=== PATIENT | female | born 2000 | race Asian ===

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

== ENCOUNTER 2020-07-30 12:33 | Emergency (ER) | payer MEDICAID ==
[~2020-07-30] VITALS: Ht 165.1 cm; Wt 77.3 kg
[2020-07-30 13:27] VITALS: BP 132/85
[2020-07-30] MEDS ORDERED: CYCL-394 PO (14:48)
== END 2020-07-30 15:00 | disposition home or self-care (01) ==
LOC: ER 12:33
DX: S49.92XA Unspecified injury of left shoulder and upper arm, initial encounter (principal); R42 Dizziness and giddiness; R53.83 Other fatigue; M25.512 Pain in left shoulder; M79.602 Pain in left arm; H93.12 Tinnitus, left ear; Z91.013 Allergy to seafood; Z91.018 Allergy to other foods; Z79.899 Other long term (current) drug therapy; V87.7XXA Person injured in collision between other specified motor vehicles (traffic), initial encounter; Y93.89 Activity, other specified; Y92.89 Other specified places as the place of occurrence of the external cause; Y99.8 Other external cause status
CPT/HCPCS: 99283

== ENCOUNTER 2020-08-10 07:37 | Emergency (ER) | payer MEDICAID ==
[~2020-08-10] VITALS: Ht 165.1 cm; Wt 78.8 kg
[~2020-08-10 07:37] MED LIST changes: +CYCL-394 PO
[2020-08-10] MEDS ORDERED: LIDOcaine Viscous 15ml cup MM ONE (08:30)
[2020-08-10] MEDS ORDERED: HYDROcodone/acetaminophen 10/325mg tab PO ONE (08:30)
[2020-08-10] MEDS ORDERED: mag hydrox/Alum hydrox/simeth 30ml oral suspension PO ONE (08:30)
[2020-08-10] MEDS ORDERED: ibuprofen 200mg tablet PO ONE (08:30)
[2020-08-10] MEDS ORDERED: dexamethasone sod phosphate 10mg/ml inj IM STA (09:26)
[2020-08-10] MEDS ORDERED: PENICILLIN G BENZATHINE 2,400,000 UNIT/4 ML SYRINGE IM ONE (09:30)
[2020-08-10] MEDS ORDERED: penicillin G benzathine 1.2 million unit/2ml syringe IM ONE (09:30)
[2020-08-10 09:57] VITALS: BP 136/78
== END 2020-08-10 09:58 | disposition home or self-care (01) ==
LOC: ER 07:37
DX: J02.0 Streptococcal pharyngitis (principal); R51.9 Headache, unspecified; J45.909 Unspecified asthma, uncomplicated; Z91.013 Allergy to seafood; Z91.018 Allergy to other foods; Z79.899 Other long term (current) drug therapy
CPT/HCPCS: 87880; 96372; 99284; J0561; J1100

== ENCOUNTER 2020-08-13 22:53 | Emergency (ER) | payer MEDICAID ==
[~2020-08-13] VITALS: Ht 167.6 cm; Wt 78.8 kg
[2020-08-13 23:24] VITALS: BP 135/89
[2020-08-14] MEDS ORDERED: diph,pertuss (acell), tet (DTaP-PEDs)/PF 0.5ml syringe IMVAC ONE (00:40)
[2020-08-14] MEDS ORDERED: HYDROcodone/acetaminophen 5mg/325mg tablet PO ONE (00:40)
[2020-08-14] MEDS ORDERED: TETanus/Pertussis (Acell)/Diphther VAC/PF (Tdap-Adult) 0.5ml syringe IMVAC ONE (00:45)
[2020-08-14] MEDS ORDERED: LIDOcaine 1% W/epiNEPHrine 1:100,000 20ml vial SQ ONE (02:55)
--- NOTE | 2020-08-14 04:28 | NUR ---
PT SIGNED MEDICAL RECORDS RELEASE AND PROVIDED XRAY READ AND MEDS GIVEN. PT FILLED OUT THE ANIMALL BITE FORM AND IT WAS FAXED TO [facility]
== END 2020-08-14 04:32 | disposition home or self-care (01) ==
LOC: ER 22:54
DX: S71.111A Laceration without foreign body, right thigh, initial encounter (principal); M79.651 Pain in right thigh; J45.909 Unspecified asthma, uncomplicated; Z91.013 Allergy to seafood; Z91.018 Allergy to other foods; Z79.899 Other long term (current) drug therapy; W54.0XXA Bitten by dog, initial encounter; Y93.89 Activity, other specified; Y92.89 Other specified places as the place of occurrence of the external cause; Y99.8 Other external cause status
CPT/HCPCS: 12001; 73551; 90471; 90715; 96372; 99283

== ENCOUNTER 2020-08-21 19:12 | Emergency (ER) | payer MEDICAID ==
[~2020-08-21] VITALS: Ht 165.1 cm; Wt 78.0 kg
[2020-08-21 19:55] VITALS: BP 140/101
[2020-08-21] MEDS ORDERED: rabies immune globulin/PF 150 unit/ml inj IMVAC STA (22:37)
[2020-08-21] MEDS ORDERED: rabies immune globulin/PF 150 unit/ml inj IMVAC ONE (22:45)
--- NOTE | 2020-08-21 23:59 | NUR ---
SANDRO Carroll notified wound was from couple days. Per Charge Nurse Ventura and SANDRO, adm. IM multiple sites at this time the vaccine.
== END 2020-08-22 00:03 | disposition home or self-care (01) ==
LOC: ER 19:13
DX: S70.11XA Contusion of right thigh, initial encounter (principal); Z20.3 Contact with and (suspected) exposure to rabies; J45.909 Unspecified asthma, uncomplicated; Z91.013 Allergy to seafood; Z91.018 Allergy to other foods; Z79.899 Other long term (current) drug therapy; W54.0XXA Bitten by dog, initial encounter; Y93.89 Activity, other specified; Y92.89 Other specified places as the place of occurrence of the external cause; Y99.8 Other external cause status
CPT/HCPCS: 90375; 96372; 99283

== ENCOUNTER 2021-11-01 11:04 | Emergency (ER) | payer BC, MEDICAID ==
[~2021-11-01] VITALS: Ht 165.1 cm; Wt 73.6 kg
[~2021-11-01 11:04] MED LIST changes: -CYCL-394 PO
[2021-11-01 11:08] VITALS: BP 133/71
[2021-11-01] MEDS ORDERED: bacitracin 15gm ointment TP ONE (13:10)
== END 2021-11-01 13:47 | disposition home or self-care (01) ==
LOC: ER 11:05
DX: T24.231D Burn of second degree of right lower leg, subsequent encounter (principal); J45.909 Unspecified asthma, uncomplicated; Z91.013 Allergy to seafood; X58.XXXD Exposure to other specified factors, subsequent encounter
CPT/HCPCS: 99282